=== PATIENT | female | born 1950 | race Caucasian/White ===

== ENCOUNTER 2020-02-13 21:45 | Emergency (ER) | payer MEDICARE ==
[2020-02-13] MEDS ORDERED: ONDANSETRON HCL INJ/PF 4 MG/2 ML SDV IV ONE (22:58)
[2020-02-13] MEDS ORDERED: MORPHINE SULFATE 10 MG/ML INJ IV ONE (22:59)
[2020-02-13] MEDS ORDERED: NORMAL SALINE 1000 ML 1,000 ML IV ONE (22:59)
--- NOTE | 2020-02-13 23:04 | ER Document Report ---
ED General - General Chief Complaint: Possible Kidney Stone Stated Complaint: FALL Time Seen by Provider: 02/13/20 22:34 Primary Care Provider: JORGE BARRIGA MD [Primary Care Provider] - Follow up as needed - HPI Context: This is a 61-year-old female with a history of pyelonephritis and kidney stones presenting to the emergency department complaining of left flank pain. Patient states that she had a ureteral stent placed in her left ureter yesterday by her urologist in [place]. Patient states she felt the stent come out today. The patient states that she felt the stent come out and she took it out of the way toilet and threw it away. Patient rates her pain as a 5 out of 5. Patient loca lizes the pain to her left flank. Patient states nothing alleviates the pain and movement worsens it. Patient states she spoke with her urologist nurse today and the nurse told her to come to the ED for evaluation. Associated symptoms: Nausea Exacerbated by: Movement Recently seen / treated by doctor: Yes - Related Data Allergies/Adverse Reactions: baclofen [Baclofen] Allergy (Verified 12/04/13 14:17) colesevelam HCl [From WelChol] Allergy (Verified 12/04/13 14:17) cyclobenzaprine HCl [From Flexeril] Allergy (Verified 12/04/13 14:17) gabapentin [From Neurontin] Allergy (Verified 12/04/13 14:17) Iodinated Contrast Media [IV Dye, Iodine Containing] Allergy (Verified 12/04/13 14:17) phenobarbital [Phenobarbital] Allergy (Verified 12/04/13 14:17) tizanidine [Tizanidine] Allergy (Verified 12/04/13 14:17) Past Medical History - General Information source: Patient - Social History Smoking Status: Former Smoker Chew tobacco use (# tins/day): No Frequency of alcohol use: None Drug Abuse: None Family History: Reviewed & Not Pertinent Patient has suicidal ideation: No Patient has homicidal ideation: No - Past Medical History Cardiac Medical History: Reports: Hx Hypercholesterolemia Denies: Hx Coronary Artery Disease, Hx Heart Attack, Hx Hypertension Pulmonary Medical History: Reports: Hx Asthma, Hx Bronchitis, Hx Pneumonia - Last time 2 yrs ago Denies: Hx COPD, Hx Tuberculosis Neurological Medical History: Reports: Hx Seizures - Epilepsy (seizures at night only)- No meds currently. Denies: Hx Cerebrovascular Accident Musculoskeletal Medical History: Reports Hx Arthritis Psychiatric Medical History: Reports: Hx Depression Past Surgical History: Reports: Hx Hysterectomy - uterine cancer, Hx Orthopedic Surgery - Immunizations Hx Diphtheria, Pertussis, Tetanus Vaccination: - Unsure Review of Systems - Review of Systems Constitutional: No symptoms reported EENT: No symptoms reported Cardiovascular: No symptoms reported Respiratory: No symptoms reported Gastrointestinal: Nausea Genitourinary: Flank pain Female Genitourinary: No symptoms reported Musculoskeletal: No symptoms reported Skin: No symptoms reported Hematologic/Lymphatic: No symptoms reported Neurological/Psychological: No symptoms reported -: Yes All other systems reviewed and negative Physical Exam - Vital signs Vitals: Temp 98.9 F 02/13/20 21:46 - Notes Notes: CONSTITUTIONAL [Vital signs reviewed, Patient appears uncomfortable, Alert and oriented X 3, Normal stature.] HEAD [Atraumatic, Normocephalic.] EYES [Eyes are normal to inspection, No discharge from eyes, Extraocular muscles intact, Sclera are normal, Conjunctiva are normal.] NECK [Normal ROM, No jugular venous distention, No meningeal signs, no carotid bruit.] RESPIRATORY CHEST [Chest is nontender, Breath sounds normal, No respiratory distress.] CARDIOVASCULAR [RRR, No murmurs, Normal S1 S2, No rub, No gallop.] ABDOMEN [Abdomen is nontender, No pulsatile masses, No other masses, Bowel sounds normal, No distension, No peritoneal signs, No hernias.] UPPER EXTREMITY [Inspection normal, No cyanosis, No clubbing, No edema, 2+ radial pulses.] LOWER EXTREMITY [Inspection normal, No cyanosis, No clubbing, No edema, No calf tenderness, 2+ femoral pulses.] NEURO [No focal motor deficits, No focal sensory deficits, Speech normal.] SKIN [Skin is warm, Skin is dry, Skin is normal color.] PSYCHIATRIC [Normal affect. ] Course - Re-evaluation Re-evalutation: 02/14/20 06:32 Patient states she is feeling better at this time. Results of ED MSE, diagnosis, plan of care discussed with patient. All questions were answered. Emergency signs and symptoms, reasons to return to the emergency department discussed with patient. - Vital Signs Vital signs: Temp Pulse Resp BP Pulse Ox 98.9 F 02/13/20 21:46 - Laboratory Result Diagrams: 02/14/20 02:00 02/14/20 01:42 Laboratory results interpreted by me: 02/13/20 02/14/20 02/14/20 23:56 01:42 02:00 WBC 13.9 H Hgb 11.7 L Hct 34.8 L RDW 14.2 H Absolute Neuts (auto) 10.4 H Sodium 136.7 L Est GFR (MDRD) Non-Af 52 L Glucose 129 H Total Protein 5.8 L Albumin 3.4 L Urine Protein 100 H Urine Blood LARGE H Ur Leukocyte Esterase TRACE H - Diagnostic Test Radiology reviewed: Reports reviewed - Consults Dr. Fletcher[facility] Time consulted: 06:17 - This MD initially spoke with Dr. Fletcher at [address]333 hours[address] He recommended a CT to look for evidence of obstruction. Results of CT [place] [address] showed hydroureteronephrosis but no evidence of obstruction. He agreed with plan to treat with cefdinir, Zofran and pain medication and follow-up with Dr. Keller on 02/16/2020 Reason for consultation: 02/14/20 06:30 stent dislodged Discharge - Discharge Clinical Impression: Hydroureteronephrosis, Flank pain UTI (urinary tract infection) Qualifiers: Urinary tract infection type: site unspecified Hematuria presence: with hematuria Qualified Code(s): N39.0 - Urinary tract infection, site not specified; R31.9 - Hematuria, unspecified Condition: Stable Disposition: HOME, SELF-CARE Instructions: Oral Narcotic Medication ([facility]), Urinary Tract Infection ([facility]) Additional Instructions: Stop taking the antibiotic you are currently taking. Start cefdinir and take as instructed. Use Magdalena for pain as instructed and Zofran for nausea as instructed. Be certain to follow-up with Dr. Keller on 02/16/2020. Return to the Emergency Department without delay if any worse. HOME CARE INSTRUCTIONS & INFORMATION: Thank you for choosing us for your medical needs. We hope you're satisfied with the care you received. After you leave, you must properly care for your problem and, at the same time, observe its progress. Any condition can change. Some illnesses can change rapidly over hours or days. If your condition worsens, return to the Emergency Department or see your physician promptly. ABOUT YOUR X-RAYS AND EKG'S: If you had an EKG or X-rays taken, they have been read by the Emergency Physician. The X-rays and EKG's will also be read by a Radiologist or [employer] within 24 hours. If discrepancies are noted, you will be notified by telephone. Please be certain the ED has a correct telephone number & address where you can be reached. Also, realize that some fractures or abnormalities do not show up on initial X-rays. If your symptoms continue, see your physician. ABOUT YOUR LABORATORY TEST: If you had laboratory tests, the results have been reviewed by the Emergency Physician. Some test results (for example cultures) may not be available for several days. You will be contacted if any test result shows you need additional treatment. Please be certain the ED has a correct telephone number and address where you can be reached. ABOUT YOUR MEDICATIONS: You will receive instructions on how to take your medicine on the prescription label you receive. Additional information may be provided by the Pharmacy. If you have questions afterwards, call the ED for clarification or further instructions. Some prescribed medications may cause drowsiness. Do not perform tasks such as driving a car or operating machinery without consulting your Pharmacist. If you feel you need a refill of pain medication, your condition will need re-evaluation. Please do not call for a refill of any medication. ABOUT YOUR SIGNATURE: Signature of this document acknowledges to followin. Understanding that you received emergency treatment and that you may be released before al medical problems are known or treated. Please be certain the ED has a correct phone number & address where you can be reached. 2. Acknowledgement that you will arrange for follow-up care as recommended. 3. Authorization for the Emergency Physician to provide information to your follow-up Physician in order to maximize your care. AT ANY TIME, IF YOUR SYMPTOMS CHANGE SIGNIFICANTLY OR WORSEN OR YOU DEVELOP NEW SYMPTOMS, RETURN TO THE EMERGENCY DEPARTMENT IMMEDIATELY FOR RE-EVALUATION. OUR GOAL IS TO PROVIDE EXCELLENT MEDICAL CARE! WE HOPE THAT WE HAVE MET YOUR EXPECTATIONS DURING YOUR EMERGENCY DEPARTMENT VISIT AND THAT YOU FEEL YOU HAVE RECEIVED EXCELLENT CARE! Prescriptions: Hydrocodone/Acetaminophen [Magdalena 5-325 mg Tablet] 1 tab PO Q6HP PRN #10 tablet PRN Reason: pain Ondansetron [Zofran Odt 4 mg Tablet] 4 mg PO Q8HP PRN #10 tab.rapdis PRN Reason: nausea Cefdinir 600 mg PO DAILY 10 Days #20 capsule Referrals: JORGE BARRIGA MD [Primary Care Provider] - Follow up as needed HERMILO KELLER MD [NO LOCAL MD] - 02/16/20
[2020-02-14 00:15] LABS: APPEARANCE,URINE SLIGHTLY-CLOUDY; BILIRUBIN,URINE NEGATIVE (NEGATIVE); GLUCOSE, URINE NEGATIVE (NEGATIVE); KETONES,URINE NEGATIVE (NEGATIVE); LEUKOCYTE ESTERASE,URINE TRACE (NEGATIVE); NITRITE,URINE NEGATIVE (NEGATIVE); PROTEIN,URINE 100 mg/dL (NEGATIVE); URINE SPECIFIC GRAVITY 1.006; UROBILINOGEN,URINE NEGATIVE mg/dL (<2.0)
[2020-02-14 00:17] LABS: COLOR,URINE DARK YELLOW
[2020-02-14 02:06] LABS: ALBUMIN 3.4 g/dL (3.5-5.0); ALKALINE PHOSPHATASE 89 U/L (38-126); ANION GAP 7 (5-19); ASPARTATE AMINO TRANSFERASE 21 U/L (14-36); BILIRUBIN,DIRECT 0.2 mg/dL (0.0-0.4); BILIRUBIN,TOTAL 0.6 mg/dL (0.2-1.3); BLOOD UREA NITROGEN 12 mg/dL (7-20); CALCIUM 8.7 mg/dL (8.4-10.2); CARBON DIOXIDE 28 mmol/L (22-30); CHLORIDE 102 mmol/L (98-107); GLUCOSE 129 mg/dL (75-110); NEONATAL BILIRUBIN RESULT 0.4 mg/dL (0.1-1.1); POTASSIUM 4.2 mmol/L (3.6-5.0); TOTAL PROTEIN 5.8 g/dL (6.3-8.2)
[2020-02-14 02:20] LABS: ABSOLUTE BASOPHILS # (AUTO) 0.1 10^3/uL (0.0-0.2); ABSOLUTE LYMPHOCYTES (AUTO) 2.1 10^3/uL (0.5-4.7); ABSOLUTE MONOCYTES (AUTO) 1.3 10^3/uL (0.1-1.4); ABSOLUTE NEUT (AUTO) 10.4 10^3/uL (1.7-8.2); BASOPHILS % (AUTO) 0.8 % (0-2); EOSINOPHILS % (AUTO) 0.1 % (0-6); HEMATOCRIT 34.8 % (36.0-47.0); HEMOGLOBIN 11.7 g/dL (12.0-15.5); LYMPHOCYTES % (AUTO) 15.3 % (13-45); MEAN CORPUSCULAR HEMOGLOBIN 29.8 pg (27.0-33.4); MEAN CORPUSCULAR HGB CONC 33.5 g/dL (32.0-36.0); MEAN CORPUSCULAR VOLUME 89 fl (80-97); PLATELET COUNT 224 10^3/uL (150-450); RED BLOOD COUNT 3.92 10^6/uL (3.72-5.28); RED CELL DISTRIBUTION WIDTH 14.2 % (11.5-14.0); SEGMENTED NEUTROPHILS % (AUTO) 74.8 % (42-78); TOTAL CELLS COUNTED % (AUTO) 100 %; WHITE BLOOD COUNT 13.9 10^3/uL (4.0-10.5)
--- NOTE | 2020-02-14 02:26 | RADIOLOGY REPORT (SQ) ---
CLINICAL HISTORY: pt thinks her ureteral stent dislodged COMPARISON: None. TECHNIQUE: XR ABDOMEN SUPINE AND ERECT WITH CHEST (ABD ACUTE SERIES) 02/13/2020 11:02 PM CDT FINDINGS: Bowel gas pattern is nonspecific. There are no abnormal radiopaque foreign bodies or abnormal calcifications. Osseous structures are grossly unremarkable. The heart is normal in size. Lungs are clear. There is no evidence of a ureteral stent. There is possible dextrocardia. IMPRESSION: No ureteral stent seen.
[2020-02-14] MEDS ORDERED: CEFTRIAXONE 1 GM/D5W RTU 1 GM/50 ML RTUPB IV ONE (03:35)
--- NOTE | 2020-02-14 06:08 | RADIOLOGY REPORT (SQ) ---
CT ABDOMEN AND PELVIS WITHOUT INTRAVENOUS CONTRAST: 02/14/2020 5:02 AM CDT HISTORY: 69-year old with hematuria, left side flank pain. COMPARISON: CT of the abdomen and pelvis from 11/26/2013 TECHNIQUE: Axial contiguous images were obtained from the lung bases to the proximal femurs without intravenous contrast administered. Sagittal and coronal reconstructions were also obtained and reviewed. This exam was performed according to our departmental dose-optimization program, which includes automated exposure control, adjustment of the mA and/or KV according to the patient's size and/or use of iterative reconstruction technique. FINDINGS: No focal consolidative airspace opacities are seen. No discrete pleural effusions are seen. There is some volume loss within the right hemithorax noted partially visualized. Evaluation of the solid organs is limited by the lack of intravenous contrast. The visualized hepatic parenchyma is unremarkable. The gallbladder demonstrates no evidence of calcified gallstones. The spleen is within normal limits of size. The pancreas is unremarkable. The bilateral adrenal glands appear unremarkable. There is moderate left hydroureteronephrosis present. There is air within the left renal collecting systems portions of the ureter. There is calcification noted within the dependent portion of some of the the dependent portion of the left renal pelvis. This may represent ascending infection or could be iatrogenic. No distal left ureteral calculus is seen. There is a right renal calcification measuring up to 8 to 9 mm. There are multiple isodense to hyperdense lesion seen at both kidneys which are indeterminate. These measure up to 2 cm on the left and 1.2 cm on the right. These are better evaluated with postcontrast imaging. There is air within the urinary bladder. The sigmoid colon is in close proximity to the dome of the bladder. The stomach is not well distended. The small bowel loops appear unremarkable. No pericolonic inflammatory stranding is seen. There are several colonic diverticula noted without evidence to suggest acute diverticulitis. There is a tubular structure at the right lower quadrant of the abdomen which may represent a normal appendix. No gross inflammatory stranding is seen. There is no evidence of pneumoperitoneum or free fluid. The aorta and IVC appear normal in size. There is mild atherosclerotic calcification of aorta. No significantly enlarged lymph nodes are seen in the abdomen or pelvis. Review of the bone show no evidence of any suspicious lytic or blastic lesions. Multilevel degenerative changes are seen within the lumbar spine. IMPRESSION: There is air within the urinary bladder and left renal collecting system and ureter. Sigmoid colon with multiple colonic diverticular in close proximity to the bladder. This could represent an enterovesicular fistula. This could also be iatrogenic from [place] catheter insertion. There is moderate left hydroureteronephrosis present with multiple calcifications. This could be due to ascending infection.
[2020-02-14] MEDS ORDERED: ONDANSETRON ODT 4 MG TAB (6 TAB/ER DISP) PO PRN (06:28)
[2020-02-14] MEDS ORDERED: HYDROCODONE/ACETAMINOPHEN 5-325 MG (6 TAB/ER DISP) PO PRN (06:28)
[2020-02-14 06:54] VITALS: BP 140/77
== END 2020-02-14 08:10 | disposition home or self-care (01) ==
LOC: ER 21:45
DX: N13.30 Unspecified hydronephrosis (principal); N39.0 Urinary tract infection, site not specified; R10.9 Unspecified abdominal pain; E78.00 Pure hypercholesterolemia, unspecified; Z90.710 Acquired absence of both cervix and uterus
CPT/HCPCS: 99285; 96361 ×2; 96375; 96365; 36415; 87086; 85025; 80053; 81001; 74022; 74176; J2270; J2405; J7030; J0696; A9270 ×2